=== PATIENT | male | born 1990 | race Caucasian/White ===

== ENCOUNTER 2017-12-29 00:05 | Emergency (ER) | payer OTHER ==
[~2017-12-29] VITALS: Ht 190.5 cm; Wt 90.7 kg
[~2017-12-29 00:05] MED LIST: BACTRIM DS TAB1 EACH PO; BACTROBAN22 GM TOP; CLINDAMYCIN HC300 MG PO
[2017-12-29] MEDS ORDERED: AUGMENTIN 875-1 EACH PO (01:25)
== END 2017-12-29 01:42 | disposition home or self-care (01) ==
LOC: ED 00:05
DX: S00.83XA Contusion of other part of head, initial encounter (principal); Z87.891 Personal history of nicotine dependence; Z23 Encounter for immunization; Y04.8XXA Assault by other bodily force, initial encounter
CPT/HCPCS: 70450; 70486; 90471; 90715; 99284

== ENCOUNTER 2018-06-06 00:48 | Emergency (ER) | payer OTHER ==
[~2018-06-06] VITALS: Ht 188 cm; Wt 81.7 kg
[~2018-06-06 00:48] MED LIST changes: +AUGMENTIN 875-1 EACH PO
== END 2018-06-06 01:59 | disposition home or self-care (01) ==
LOC: ED 00:48
DX: S06.0X9A Concussion with loss of consciousness of unspecified duration, initial encounter (principal); R55 Syncope and collapse; R39.198 Other difficulties with micturition; Z87.891 Personal history of nicotine dependence; W18.09XA Striking against other object with subsequent fall, initial encounter
CPT/HCPCS: 70450; 99284-25